=== PATIENT | male | born 1975 | race Caucasian/White ===

== ENCOUNTER 2022-05-31 | Inpatient (IN) | payer OTHER ==
[2022-05-31] MEDS ORDERED: ACETAMINOPHEN 1000 MG/100 ML BAG IVPB ONE (01:14)
[2022-05-31] MEDS ORDERED: ACETAMINOPHEN INJECTION 100 ML IVPB ONE (01:49)
[2022-05-31 02:33] LABS: CALCIUM 9.1 mg/dL (8.5-10.1)
[2022-05-31 02:34] LABS: ALBUMIN 4.1 g/dl (3.4-5.0); BLOOD UREA NITROGEN 16.8 mg/dL (7-18)
[2022-05-31 02:38] LABS: TOT PROT 7.9 g/dl (6.4-8.2)
[2022-05-31 02:39] LABS: BILIRUBIN,TOTAL 1.1 mg/dL (0.2-1)
[2022-05-31 03:08] LABS: BASO % 0.2 % (0-2.0); EOS % 0.2 % (0-4.5); HEMOGLOBIN 16.4 GM/dL (11.7-16.9); LYMPH % 8.1 % (8-40); MCH 29.7 pg (25.7-33.7); MCHC 35.6 g/dl (32.0-35.9); MEAN CELL VOLUME 83.6 fl (80-96); MEAN PLT VOLUME 7.2 fl (7.5-11.1); MONO % 9.3 % (3.8-10.2); NEUT % 82.2 % (42.8-82.8); PLATELET COUNT 272 10^3/uL (134-434); RDW 13.8 % (11.9-15.9)
[2022-05-31] MEDS ORDERED: SODIUM CHLORIDE 1,000 ML IV STA (06:07)
[2022-05-31] MEDS ORDERED: LIDOCAINE HCL 2% JELLY 10 ML CARTRIDGE ONE (06:16)
[2022-05-31 07:12] LABS: EPI CELLS 10 /uL (0-25.1); HYALINE CASTS 2 /uL (0-3.1); URINE APPEARANCE CLEAR; URINE BACTERIA 8 /uL (0-1359); URINE BILIRUBIN NEGATIVE (NEGATIVE); URINE COLOR YELLOW; URINE GLUCOSE (UA) NEGATIVE (NEGATIVE); URINE KETONE TRACE (NEGATIVE); URINE LEUK ESTERASE NEGATIVE (NEGATIVE); URINE NITRITE NEGATIVE (NEGATIVE); URINE PROTEIN 1+ (NEGATIVE); URINE RBC 20 /uL (0-23.9); URINE WBC 4 /uL (0-25.8)
[2022-05-31] MEDS: DEXTROSE 5%-0.45% SALINE 1,000 ML IV SCH (09:18)
[2022-05-31] MEDS: ACETAMINOPHEN 1000 MG/100 ML BAG IVPB PRN ×2 (12:01→20:08)
[2022-05-31 13:07] VITALS: BMI 31.1
[2022-05-31] MEDS: PIPERACILLIN/TAZOB 3.375 GM 3.375 GM in DEXTROSE 5%-WATER - 50 ML IVPB SCH ×2 (15:06→17:19)
[2022-05-31] MEDS: PHENOL 177 ML SPRAY BOTTLE MM PRN ×2 (15:08→20:09)
[2022-06-01] MEDS: PIPERACILLIN/TAZOB 3.375 GM 3.375 GM in DEXTROSE 5%-WATER - 50 ML IVPB SCH ×2 (02:33→09:08)
[2022-06-01] MEDS: DEXTROSE 5%-0.45% SALINE 1,000 ML IV SCH ×3 (02:39→13:02)
[2022-06-01] MEDS ORDERED: BUPIVACAINE HCL/PF 0.25% (2.5MG/ML) 10 ML VIAL ONE (10:05)
[2022-06-01] MEDS ORDERED: PROPOFOL 20 ML ONE (10:23)
[2022-06-01] MEDS ORDERED: MIDAZOLAM HCL 2 MG/2 ML SINGLE DOSE VIAL ONE (10:23)
[2022-06-01] MEDS ORDERED: HEPARIN NA (PORCINE) 5,000 UNITS/ML 1ML VIAL ONE (11:09)
[2022-06-01] MEDS ORDERED: cefOXitin SODIUM 2 GM VIAL (RESTRICTED TO ID) IVPB ONE ×2 (11:09→11:12)
[2022-06-01] MEDS ORDERED: HYDROmorphone HCl 2 MG/ML VIAL ONE (11:27)
[2022-06-01] MEDS ORDERED: SUGAMMADEX SODIUM 200 MG/2 ML VIAL ONE ×2 (12:01→12:02)
[2022-06-01] MEDS ORDERED: ACETAMINOPHEN 1000 MG/100 ML BAG IVPB ONE (12:08)
[2022-06-01] MEDS ORDERED: oxyCODONE HCL 5 MG TABLET PO PRN (12:10)
[2022-06-01] MEDS ORDERED: ONDANSETRON 4 MG/2 ML VIAL IVPUSH PRN (12:21)
[2022-06-01] MEDS ORDERED: LACTATED RINGERS SOLUTION 1,000 ML IV SCH (12:30)
[2022-06-01] MEDS ORDERED: PHENOL 177 ML SPRAY BOTTLE MM PRN (12:43)
[2022-06-01] MEDS ORDERED: ACETAMINOPHEN INJECTION 100 ML IVPB ONE (12:56)
[2022-06-02] MEDS: DEXTROSE 5%-0.45% SALINE 1,000 ML IV SCH ×2 (01:43→15:14)
[2022-06-02] MEDS: LACTOBACILLUS ACIDOPHILUS 1 TABLET PO SCH ×2 (17:53→22:08)
[2022-06-02] MEDS: ACETAMINOPHEN 1000 MG/100 ML BAG IVPB PRN (19:36)
[2022-06-03] MEDS: DEXTROSE 5%-0.45% SALINE 1,000 ML IV SCH ×3 (01:35→15:07)
[2022-06-03] MEDS: LACTOBACILLUS ACIDOPHILUS 1 TABLET PO SCH ×2 (09:52→21:51)
[2022-06-03] MEDS: VANCOMYCIN 250 MG/5 ML ORAL SOLUTION PO SCH ×2 (13:38→17:36)
[2022-06-03 15:18] LABS: BASO % 0.4 % (0-2.0); EOS % 2.5 % (0-4.5); HEMATOCRIT 38.6 % (35.4-49); HEMOGLOBIN 13.6 GM/dL (11.7-16.9); LYMPH % 15.1 % (8-40); MCH 29.7 pg (25.7-33.7); MCHC 35.3 g/dl (32.0-35.9); MEAN CELL VOLUME 84.1 fl (80-96); MONO % 11.3 % (3.8-10.2); NEUT % 70.7 % (42.8-82.8); PLATELET COUNT 223 10^3/uL (134-434); RBC 4.59 M/mm3 (4.00-5.60); RDW 13.8 % (11.9-15.9); WHITE BLOOD COUNT 10.3 K/mm3 (4.0-10.0)
[2022-06-03 15:39] LABS: CALCIUM 8.8 mg/dL (8.5-10.1)
[2022-06-03 15:40] LABS: ALBUMIN 3.3 g/dl (3.4-5.0); BLOOD UREA NITROGEN 7.7 mg/dL (7-18)
[2022-06-03 15:43] LABS: CREATININE 0.9 mg/dL (0.55-1.3)
[2022-06-03 15:44] LABS: BILIRUBIN,TOTAL 1.1 mg/dL (0.2-1)
[2022-06-03 15:45] LABS: TOT PROT 6.9 g/dl (6.4-8.2)
[2022-06-03] MEDS ORDERED: POTASSIUM CHLORIDE ORAL LIQUID 20 MEQ/15 ML PO ONE (16:31)
[2022-06-03] MEDS: ACETAMINOPHEN 1000 MG/100 ML BAG IVPB PRN (16:40)
[2022-06-04] MEDS: VANCOMYCIN 250 MG/5 ML ORAL SOLUTION PO SCH ×4 (01:04→17:45)
[2022-06-04] MEDS: ACETAMINOPHEN 325 MG TABLET (FP) PO PRN ×2 (10:26→22:25)
[2022-06-04] MEDS: LACTOBACILLUS ACIDOPHILUS 1 TABLET PO SCH ×2 (10:26→22:26)
[2022-06-04] MEDS: AMOX TR/POT CLAV 875MG/125MG TABLETS (FP) PO SCH ×2 (12:04→17:45)
[2022-06-04] MEDS: DEXTROSE 5%-0.45% SALINE 1,000 ML IV SCH (14:57)
[2022-06-04 17:40] LABS: BASO % 0.5 % (0-2.0); EOS % 4.6 % (0-4.5); HEMATOCRIT 40.5 % (35.4-49); HEMOGLOBIN 14.2 GM/dL (11.7-16.9); MCH 29.6 pg (25.7-33.7); MCHC 35.1 g/dl (32.0-35.9); MEAN CELL VOLUME 84.3 fl (80-96); NEUT % 61.9 % (42.8-82.8); PLATELET COUNT 232 10^3/uL (134-434); RBC 4.81 M/mm3 (4.00-5.60); RDW 13.9 % (11.9-15.9); WHITE BLOOD COUNT 9.1 K/mm3 (4.0-10.0)
[2022-06-04 18:03] LABS: ALBUMIN 3.5 g/dl (3.4-5.0); CALCIUM 9.2 mg/dL (8.5-10.1)
[2022-06-04 18:04] LABS: BLOOD UREA NITROGEN 9.4 mg/dL (7-18); MAGNESIUM 2.2 mg/dL (1.8-2.4)
[2022-06-04 18:07] LABS: CREATININE 0.9 mg/dL (0.55-1.3)
[2022-06-04 18:08] LABS: BILIRUBIN,TOTAL 0.8 mg/dL (0.2-1)
[2022-06-05] MEDS: VANCOMYCIN 250 MG/5 ML ORAL SOLUTION PO SCH ×4 (00:09→17:50)
[2022-06-05 09:57] LABS: BASO % 0.7 % (0-2.0); EOS % 4.7 % (0-4.5); HEMATOCRIT 39.1 % (35.4-49); HEMOGLOBIN 14.2 GM/dL (11.7-16.9); LYMPH % 19.1 % (8-40); MCH 30.2 pg (25.7-33.7); MCHC 36.5 g/dl (32.0-35.9); MEAN PLT VOLUME 7.3 fl (7.5-11.1); MONO % 9.5 % (3.8-10.2); PLATELET COUNT 281 10^3/uL (134-434); RBC 4.71 M/mm3 (4.00-5.60); RDW 14.1 % (11.9-15.9); WHITE BLOOD COUNT 7.5 K/mm3 (4.0-10.0)
[2022-06-05 10:12] LABS: ALBUMIN 3.4 g/dl (3.4-5.0); BLOOD UREA NITROGEN 10.6 mg/dL (7-18); CALCIUM 9.1 mg/dL (8.5-10.1)
[2022-06-05 10:16] LABS: CREATININE 0.9 mg/dL (0.55-1.3)
[2022-06-05 10:17] LABS: BILIRUBIN,TOTAL 1.2 mg/dL (0.2-1)
[2022-06-05] MEDS: LACTOBACILLUS ACIDOPHILUS 1 TABLET PO SCH (10:19)
[2022-06-05] MEDS: AMOX TR/POT CLAV 875MG/125MG TABLETS (FP) PO SCH ×2 (10:20→17:49)
[2022-06-05 15:40] VITALS: BP 107/59; PULSE 73; RESP 18; TEMP 98.7
== END 2022-06-05 19:05 | disposition home or self-care (01) | DRG 336 ==
LOC: JER → JERBED 05:01 → J8W 10:31
PROVIDERS: ADMIT Family Medicine; ATTEND Family Medicine
PROC: 0DNW4ZZ Release Peritoneum, Percutaneous Endoscopic Approach (ICD-10-PCS; 2022-06-01)
PROC: 0DJ60ZZ Inspection of Stomach, Open Approach (ICD-10-PCS; 2022-06-01)
PROC: 0DTJ4ZZ Resection of Appendix, Percutaneous Endoscopic Approach (ICD-10-PCS; principal; 2022-06-01 10:00)
DX: K56.699 Other intestinal obstruction unspecified as to partial versus complete obstruction (principal); A04.72 Enterocolitis due to Clostridium difficile, not specified as recurrent; K91.89 Other postprocedural complications and disorders of digestive system; K52.9 Noninfective gastroenteritis and colitis, unspecified; D72.829 Elevated white blood cell count, unspecified; K36 Other appendicitis; K66.0 Peritoneal adhesions (postprocedural) (postinfection); K56.7 Ileus, unspecified; I80.8 Phlebitis and thrombophlebitis of other sites
CPT/HCPCS: 0241U-QW; 36415; 71045-TC-FY; 71046-TC-FY; 74018-TC-FY; 74019-TC-FY; 74177-TC; 80053; 81003; 83690; 83735; 84484; 85025; 86140; 87086; 87324; 87449; 87493; 88304-TC; 93005; 93010; 93971; 94760; 97116-GP; 97161-GP; 99285-25; J1644; Q9967

== ENCOUNTER 2022-06-30 09:04 | Emergency (ER) | payer OTHER ==
[2022-06-30 09:12] VITALS: BMI 31.9
[2022-06-30] MEDS ORDERED: ONDANSETRON 4 MG/2 ML VIAL IVPUSH ONE (09:51)
[2022-06-30] MEDS ORDERED: ACETAMINOPHEN 1000 MG/100 ML BAG IVPB ONE (09:51)
[2022-06-30] MEDS ORDERED: morphine SULFATE 4 MG/ML VIAL IVPUSH ONE (09:52)
[2022-06-30] MEDS ORDERED: ACETAMINOPHEN INJECTION 100 ML IVPB ONE (09:58)
[2022-06-30] MEDS ORDERED: ONDANSETRON 4 MG/2 ML VIAL ONE (09:58)
[2022-06-30] MEDS ORDERED: morphine SULFATE 4 MG/ML VIAL ONE (09:58)
[2022-06-30 10:09] LABS: BASO % 0.3 % (0-2.0); EOS % 0.9 % (0-4.5); HEMATOCRIT 41.2 % (35.4-49); HEMOGLOBIN 14.3 GM/dL (11.7-16.9); LYMPH % 9.5 % (8-40); MCH 29.5 pg (25.7-33.7); MCHC 34.6 g/dl (32.0-35.9); MEAN CELL VOLUME 85.3 fl (80-96); MEAN PLT VOLUME 7.2 fl (7.5-11.1); MONO % 7.5 % (3.8-10.2); NEUT % 81.8 % (42.8-82.8); PLATELET COUNT 174 10^3/uL (134-434); RBC 4.83 M/mm3 (4.00-5.60); RDW 13.7 % (11.9-15.9); WHITE BLOOD COUNT 9.8 K/mm3 (4.0-10.0)
[2022-06-30 10:19] LABS: INR 1.03 (0.83-1.09)
[2022-06-30 10:32] LABS: EPI CELLS 13 /uL (0-25.1); HYALINE CASTS 1 /uL (0-3.1); PH,URINE 5.5 (5.0-8.0); URINE APPEARANCE CLOUDY; URINE BACTERIA 3 /uL (0-1359); URINE BILIRUBIN NEGATIVE (NEGATIVE); URINE COLOR YELLOW; URINE GLUCOSE (UA) NEGATIVE (NEGATIVE); URINE KETONE NEGATIVE (NEGATIVE); URINE LEUK ESTERASE NEGATIVE (NEGATIVE); URINE NITRITE NEGATIVE (NEGATIVE); URINE PROTEIN 1+ (NEGATIVE); URINE UROBILINOGEN 0.2 mg/dL (0.2-1.0); URINE WBC 10 /uL (0-25.8)
[2022-06-30 10:35] LABS: CALCIUM 9.2 mg/dL (8.5-10.1)
[2022-06-30 10:36] LABS: BLOOD UREA NITROGEN 16.3 mg/dL (7-18)
[2022-06-30 10:38] LABS: CREATININE 1.2 mg/dL (0.55-1.3)
[2022-06-30 10:40] LABS: BILIRUBIN,TOTAL 0.4 mg/dL (0.2-1); TOT PROT 7.8 g/dl (6.4-8.2)
[2022-06-30 10:54] LABS: URINE RBC 99.9 /uL (0-23.9)
[2022-06-30] MEDS ORDERED: KETOROLAC TROMETHAMINE 30 MG/1 ML VIAL IVPUSH ONE (12:12)
[2022-06-30] MEDS ORDERED: TAMSULOSIN HCL 0.4 MG CAP PO ONE (12:17)
[2022-06-30] MEDS ORDERED: SODIUM CHLORIDE 0.9% 1000 ML INFUS.BAG IV ONE (12:17)
[2022-06-30] MEDS ORDERED: KETOROLAC TROMETHAMINE 15 MG/ML VIAL ONE (13:12)
[2022-06-30] MEDS ORDERED: TAMSULOSIN HCL 0.4 MG CAP ONE (13:12)
[2022-06-30 13:18] VITALS: BP 112/60; PULSE 70; RESP 20; TEMP 97.9
== END 2022-06-30 14:29 | disposition home or self-care (01) ==
LOC: JER 09:04
PROC: 3E033NZ Introduction of Analgesics, Hypnotics, Sedatives into Peripheral Vein, Percutaneous Approach (ICD-10-PCS; principal; 2022-06-30)
PROC: 3E033GC Introduction of Other Therapeutic Substance into Peripheral Vein, Percutaneous Approach (ICD-10-PCS; 2022-06-30)
PROC: 3E033GC Introduction of Other Therapeutic Substance into Peripheral Vein, Percutaneous Approach (ICD-10-PCS; 2022-06-30)
PROC: 3E033GC Introduction of Other Therapeutic Substance into Peripheral Vein, Percutaneous Approach (ICD-10-PCS; 2022-06-30)
DX: R10.31 Right lower quadrant pain (principal); R10.32 Left lower quadrant pain; R11.2 Nausea with vomiting, unspecified; N20.0 Calculus of kidney; N23 Unspecified renal colic; Z20.822 Contact with and (suspected) exposure to COVID-19
CPT/HCPCS: 36415; 74177-TC; 80053; 81003; 83605; 83690; 85025; 85610; 85730; 86850; 86900; 86901; 93005; 93010; 99285-25; C9803-CS; Q9967; U0003; U0005

== ENCOUNTER 2024-06-11 20:47 | Emergency (ER) | payer OTHER ==
[2024-06-11 21:07] VITALS: RESP 18; TEMP 98.6; BMI 37.1
[2024-06-11] MEDS ORDERED: ACETAMINOPHEN INJECTION 100 ML ONE (21:29)
[2024-06-11] MEDS: ACETAMINOPHEN 1000 MG/100 ML BAG IVPB ONE (21:47)
[2024-06-11 21:51] LABS: ABSOLUTE IMMATURE GRANULOCYTES 0.02 x10^3/uL (0.0-0.031); BASOPHILS # 0.06 x10^3/uL (0.01-0.08); EOSINOPHIL % 3.6 % (0.8-7.0); EOSINOPHILS # 0.25 x10^3/uL (0.04-0.54); HEMATOCRIT 45.2 % (40.1-51.0); HEMOGLOBIN 15.2 g/dL (13.7-17.5); MCHC 33.6 g/dl (32.3-36.5); MEAN CELL VOLUME 85.6 fl (79.0-92.2); MEAN PLT VOLUME 9.1 fl (9.4-12.4); MONOCYTE # 0.79 x10^3/uL (0.30-0.82); MONOCYTE % 11.5 % (5.3-12.2); PLATELET COUNT 206 x10^3/uL (163-337); RDW 13.1 % (12.2-16.1)
[2024-06-11 22:17] LABS: POTASSIUM 3.9 mmol/L (3.5-5.1)
[2024-06-11 22:19] LABS: CALCIUM 9.6 mg/dL (8.5-10.1)
[2024-06-11 22:20] LABS: ALBUMIN 3.8 g/dl (3.4-5.0); MAGNESIUM 2.1 mg/dL (1.8-2.4)
[2024-06-11 22:24] LABS: BILIRUBIN,TOTAL 0.7 mg/dL (0.2-1); TOT PROT 7.3 g/dl (6.4-8.2)
[2024-06-11 22:45] VITALS: BP 126/71; PULSE 60
[2024-06-11 23:14] LABS: HCV DIAGNOSTIC IN-HOUSE W/RFLX NON-REACTIVE (NONREACTIVE); HIV INTERPRETATION NEGATIVE (NEGATIVE)
== END 2024-06-11 22:51 | disposition home or self-care (01) ==
LOC: JER 20:47
PROC: 3E033NZ Introduction of Analgesics, Hypnotics, Sedatives into Peripheral Vein, Percutaneous Approach (ICD-10-PCS; principal; 2024-06-11)
DX: R07.9 Chest pain, unspecified (principal)
CPT/HCPCS: 0241U-QW; 36415; 71046-TC-FY; 80053; 83735; 84484; 85025; 85379; 86803; 87389; 93005; 93010; 99284-25; J0131